=== PATIENT | female | born 1990 | race Caucasian/White ===

== ENCOUNTER 2016-08-23 15:10 | Inpatient (IN) | payer OTHER ==
[~2016-08-23] VITALS: Ht 165.1 cm; Wt 80.7 kg
[~2016-08-23 15:10] MED LIST: LOESTRIN 241 TABLET PO; MOTRIN800 MG PO; PERPHEN-AMITRI1 EAC3 PO; TAMIFLU75 MG PO
[2016-08-23] MEDS ORDERED: VENTOLIN HFA18 GM IH (18:04)
[2016-08-23 18:18] LABS: BASOPHIL COUNT 0.1 K/uL (0-0.1); EOSINOPHIL (%) 3.3 % (0-5); EOSINOPHIL COUNT 0.3 K/uL (0-0.3); HEMATOCRIT 41.4 % (36.0-46.0); IMMATURE GRANULOCYTE (%) 0.1 % (0.0-0.7); INSTRUMENT ABS NEUTROPHIL CT 3.9 K/uL; LYMPHOCYTE COUNT 3.3 K/uL (1.0-2.8); MCH 29.3 PG (29.0-34.0); MCHC 33.6 G/DL (30.0-36.0); MCV 87.3 FL (83-99); MEAN PLAT.VOLUME 10.7 uM^3 (9.5-12.4); MONOCYTE (%) 4.1 % (3-12); MONOCYTE COUNT 0.3 K/uL (0-0.8); NEUTROPHIL (%) 49.5 % (45-76); NEUTROPHIL COUNT 3.9 K/uL (1.8-6.4); PLATELET COUNT 258 K/uL (156-360); RBC DIS.WIDTH-CV 12.5 % (11.8-14.6); RBC DIS.WIDTH-SD 40.1 % (39-53); RED BLOOD COUNT 4.74 M/uL (3.80-5.20); WHITE BLOOD COUNT 7.8 K/uL (4.1-10.2)
[2016-08-23 18:19] LABS: CHLORIDE 107 mEq/L (99-109); POTASSIUM 4.1 mEq/L (3.7-5.4); SODIUM 141 mEq/L (136-147)
[2016-08-23 18:21] LABS: GLUCOSE 78 mg/dL (70-99)
[2016-08-23 18:23] LABS: ANION GAP 13 MEQ/L (2-14)
[2016-08-23 18:24] LABS: SERUM ETHYL ALCOHOL 116 mg/dL
[2016-08-23 18:25] LABS: GFR ESTIMATE (CALCULATED) > 59 mL/min/
[2016-08-23 18:26] LABS: UREA NITROGEN (BUN) 6 mg/dL (9-23)
[2016-08-23] MEDS ORDERED: IBUPROFEN600 MG PO (22:18)
[2016-08-23] MEDS ORDERED: AMBIEN5 MG PO (22:20)
[2016-08-23 22:40] VITALS: BP 134/93
[2016-08-24 07:23] VITALS: BP 113/66
[2016-08-24 15:34] VITALS: BP 118/75
[2016-08-25 05:23] VITALS: BP 122/58
[2016-08-25 07:46] VITALS: BP 124/56
[2016-08-25] MEDS ORDERED: BUSPAR15 MG PO (09:55)
[2016-08-25] MEDS ORDERED: ARIPIPRAZOLE10 MG PO (09:55)
[2016-08-25] MEDS ORDERED: DEPAKOTE ER500 MG PO (09:55)
== END 2016-08-25 11:20 | disposition home or self-care (01) | DRG 885 ==
LOC: EME 15:10 → EDOF 18:36 → 1WEST 18:36
PROVIDERS: Emergency Medicine
DX: F31.81 Bipolar II disorder (principal); F41.1 Generalized anxiety disorder; Z81.8 Family history of other mental and behavioral disorders; F41.0 Panic disorder [episodic paroxysmal anxiety]
CPT/HCPCS: 80048; 85025; 90839; 99202; 99281; 99285; G0480

== ENCOUNTER 2017-10-27 11:49 | Emergency (ER) | payer OTHER ==
[~2017-10-27] VITALS: Ht 165.1 cm; Wt 84.1 kg
[~2017-10-27 11:49] MED LIST changes: +AMBIEN5 MG PO; +ARIPIPRAZOLE10 MG PO; +BUSPAR15 MG PO; +DEPAKOTE ER500 MG PO; +IBUPROFEN600 MG PO; +VENTOLIN HFA18 GM IH
[2017-10-27 12:10] LABS: HEMATOCRIT 36.4 % (36.0-46.0); HEMOGLOBIN 12.8 G/DL (11.9-15.5); MCH 31.8 PG (29.0-34.0); MCHC 35.2 G/DL (30.0-36.0); MCV 90.5 FL (83-99); PLATELET COUNT 217 K/uL (156-360); RBC DIS.WIDTH-CV 12.2 % (11.8-14.6); RBC DIS.WIDTH-SD 40.3 % (39-53); RED BLOOD COUNT 4.02 M/uL (3.80-5.20); WHITE BLOOD COUNT 6.2 K/uL (4.1-10.2)
[2017-10-27 12:23] LABS: CHLORIDE 97 mEq/L (99-109); POTASSIUM 3.1 mEq/L (3.7-5.4); SODIUM 139 mEq/L (136-147)
[2017-10-27 12:24] LABS: MAGNESIUM 1.9 mg/dL (1.3-2.7)
[2017-10-27 12:25] LABS: GLUCOSE 78 mg/dL (70-99)
[2017-10-27 12:29] LABS: CREATININE 0.8 mg/dL (0.6-1.3); GFR ESTIMATE (CALCULATED) > 59 mL/min/
[2017-10-27 12:30] LABS: UREA NITROGEN (BUN) 8 mg/dL (9-23)
[2017-10-27] MEDS ORDERED: K-DUR20 MEQ PO (16:41)
[2017-10-27] MEDS ORDERED: ATARAX,VISTARIL50 MG PO (16:48)
[2017-10-27 16:52] VITALS: BP 139/112
== END 2017-10-27 16:52 | disposition home or self-care (01) ==
LOC: EME 11:49
PROVIDERS: Emergency Medicine
DX: E87.6 Hypokalemia (principal); R25.2 Cramp and spasm; F41.9 Anxiety disorder, unspecified; F32.9 Major depressive disorder, single episode, unspecified; J45.909 Unspecified asthma, uncomplicated; Z87.891 Personal history of nicotine dependence
CPT/HCPCS: 70450; 80048; 82330; 83735; 85027; 93005; 99281; 99285; Q0177